=== PATIENT | female | born 2005 | race Caucasian/White ===

== ENCOUNTER 2024-03-02 01:49 | Emergency (ER) | payer SELFPAY ==
[2024-03-02 01:52] VITALS: BP 114/74
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
[2024-03-02 04:10] VITALS: BP 111/64
[2024-03-02 04:24] VITALS: BMI 25.3
[2024-03-02] MEDS: MOTRIN 600 MG PO (05:15)
== END 2024-03-02 05:20 | disposition home or self-care (01) ==
LOC: EMR 01:49
PROVIDERS: EMERGENCY PHYSICIAN Student in an Organized Health Care Education/Training Program; FAMILY PHYSICIAN Family Medicine
DX: M54.2 Cervicalgia (principal); M25.512 Pain in left shoulder; M54.9 Dorsalgia, unspecified; V58.0XXA Driver of pick-up truck or van injured in noncollision transport accident in nontraffic accident, initial encounter; Y92.410 Unspecified street and highway as the place of occurrence of the external cause; G43.909 Migraine, unspecified, not intractable, without status migrainosus; Z79.899 Other long term (current) drug therapy
CPT/HCPCS: 99284; 70450; 72125